=== PATIENT | male | born 1955 | race Asian ===

== ENCOUNTER 2016-12-28 05:33 | Inpatient (IN) | payer MEDICAID ==
[~2016-12-28] VITALS: Ht 165.1 cm; Wt 56.7 kg
[~2016-12-28 05:33] MED LIST: GABAPENTIN100 MG ORAL; GLUCOPHAGE500 MG ORAL; LIPITOR10 MG ORAL; PLAVIX75 MG ORAL
--- NOTE | 2016-12-28 05:55 | Emergency Room Report ---
History of Present Illness General Chief Complaint: Pain Source: Patient, Family Member (ROBERTO BARRY M.D.) Present Illness HPI Is a 61-year-old French male with history of [place] status post CABG in the past. 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 Patient presents with multiple pain complaints. His main complaint is right-sided headache and pain to right side and arms. Also with chest pain. No numbness in his fingers. No fever or chills. Is an ongoing problem for over a year. Has not seen anybody for it. Pain is worse tonight and is why he is here. Woke up with pain about an hour ago. No nausea no vomiting. No fever or chills. No radiation the pain in the chest. No diaphoresis (ROBERTO BARRY M.D.) Allergies: Coded Allergies: No Known Allergies (Unverified , 10/07/14) Patient History Past Medical History: see triage record, old chart reviewed, HTN, [place] Past Surgical History: CABG Pertinent Family History: none Social History: Denies: smoking Immunizations: other Reviewed Nursing Documentation: PMH: Agreed, PSxH: Agreed (ROBERTO BARRY M.D.) Nursing Documentation-PMH Hx Cardiac Problems: Yes - [place],STENT Hx Diabetes: Yes Hx Cancer: No Hx Numbness: Yes - Right side of body (ROBERTO BARRY M.D.) Review of Systems Eye: Denies: blurred vision, eye pain ENT: Denies: ear pain, nose congestion, throat swelling Respiratory: Denies: cough, shortness of breath Cardiovascular: Reports: chest pain, Denies: palpitations Gastrointestinal: Denies: abdominal pain, diarrhea, nausea, vomiting Musculoskeletal: Denies: back pain, joint pain Skin: Denies: rash Neurological: Reports: headache, numbness Endocrine: Denies: increased thirst, increased urine Hematologic/Lymphatic: Denies: easy bruising All Other Systems: negative except mentioned in HPI (ROBERTO BARRY M.D.) Physical Exam Vital Signs Date Time Temp Pulse Resp B/P Pulse Ox O2 Delivery O2 Flow Rate FiO2 12/28/16 05:39 97.7 70 16 176/106 100 Room Air vitals with hypertension Sp02 EP Interpretation: reviewed, normal General Appearance: well appearing, no apparent distress, alert Head: normocephalic, atraumatic Eyes: bilateral eye EOMI, bilateral eye PERRL ENT: hearing grossly normal, normal pharynx Neck: full range of motion, supple, no meningismus Respiratory: chest non-tender, lungs clear, normal breath sounds Cardiovascular #1: regular rate, rhythm, no murmur Gastrointestinal: normal bowel sounds, non tender, no mass, no organomegaly, no bruit, non-distended Musculoskeletal: back normal, gait/station normal, normal range of motion Neurologic: alert, oriented x3 Psychiatric: anxious Skin: warm/dry (ROBERTO BARRY M.D.) Medical Decision Making Diagnostic Impression: Primary Impression: Headache Qualified Codes: R51 - Headache Additional Impressions: Hypertensive urgency, malignant Chest pain Qualified Codes: R07.9 - Chest pain, unspecified ER Course Patient presents with headache. This has been ongoing for over a year. This may be tension-like versus migraine versus anxiety-induced. His chest pain is atypical. Labs pending. CT head pending. I will sign this patient out to Dr. Sue for final disposition. Lab Results Impression labs unremarkable (ROBERTO BARRY M.D.) ER Course Patient is a fairly complex patient with multiple differential to consideration including but not limited to cardiac cardiopulmonary and vascular emergencies Patient's CT head was negative Baseline blood work is at appropriate levels given the patient's hypertensive presentation including headache Neck pain and also shoulder pain ACS is considered on the differential and patient admitted for further care Labs Test 12/28/16 05:55 White Blood Count 4.1 K/UL (4.8-10.8) Red Blood Count 5.39 M/UL (4.70-6.10) Hemoglobin 16.4 G/DL (14.2-18.0) Hematocrit 47.4 % (42.0-52.0) Mean Corpuscular Volume 88 FL (80-99) Mean Corpuscular Hemoglobin 30.5 PG (27.0-31.0) Mean Corpuscular Hemoglobin Concent 34.7 G/DL (32.0-36.0) Red Cell Distribution Width 11.4 % (11.6-14.8) Platelet Count 209 K/UL (150-450) Mean Platelet Volume 7.3 FL (6.5-10.1) Neutrophils (%) (Auto) 55.9 % (45.0-75.0) Lymphocytes (%) (Auto) 30.5 % (20.0-45.0) Monocytes (%) (Auto) 9.4 % (1.0-10.0) Eosinophils (%) (Auto) 3.0 % (0.0-3.0) Basophils (%) (Auto) 1.2 % (0.0-2.0) Sodium Level 134 mEQ/L (135-145) Potassium Level 3.6 mEQ/L (3.4-4.9) Chloride Level 97 mEQ/L (98-107) Carbon Dioxide Level 23 mEQ/L (20-30) Anion Gap 14 (5-15) Blood Urea Nitrogen 16 mg/dL (7-23) Creatinine 0.7 mg/dL (0.7-1.2) Estimat Glomerular Filtration Rate > 60 mL/min (>60) Glucose Level 178 mg/dL (74-106) Calcium Level 8.8 mg/dL (8.6-10.2) Total Bilirubin 0.5 mg/dL (0.0-1.2) Aspartate Amino Transf (AST/SGOT) 13 U/L (5-40) Alanine Aminotransferase (ALT/SGPT) 23 U/L (3-41) Alkaline Phosphatase 98 U/L (40-129) Total Creatine Kinase 94 U/L (38-174) Creatine Kinase MB 2.9 ng/mL (< 6.7) Creatine Kinase MB Relative Index 3.0 Troponin I < 0.30 ng/mL (<=0.30) Total Protein 6.7 g/dL (6.6-8.7) Albumin 3.9 g/dL (3.5-5.2) Globulin 2.8 g/dL Albumin/Globulin Ratio 1.3 (1.0-2.7) (LILLIE SUE D.Fabian) EKG Diagnostic Results Rate: normal Rhythm: NSR ST Segments: other - Nonspecific ST changes. Incomplete left bundle branch block. (ROBERTO BARRY M.D.) Rhythm Strip Diag. Results EP Interpretation: yes Rate: 65 Rhythm: NSR, no PVC's, no ectopy (ROBERTO BARRY M.D.) EP Interpretation: yes Rate: 66 Rhythm: NSR, no PVC's, no ectopy (LILLIE SUE D.O.) Chest X-Ray Diagnostic Results EP Interpretation: Yes Findings: no consolidation, no effusion, no pneumothorax, no acute cardiopulmonary disease Number of Views: 1 (ROBERTO BARRY M.D.) EP Interpretation: Yes Findings: no consolidation, no effusion, no pneumothorax Number of Views: 1 (LILLIE SUE D.O.) CT/MRI/US Diagnostic Results CT/MRI/US Diagnostic Results : Imaging Test Ordered: CT head Impression read by radiologist. neg (ROBERTO BARRY M.D.) CT/MRI/US Diagnostic Results : Impression CT head no acute disease (LILLIE SUE D.O.) Last Vital Signs Date Time Temp Pulse Resp B/P Pulse Ox O2 Delivery O2 Flow Rate FiO2 12/28/16 05:39 97.7 70 16 176/106 100 Room Air Status: improved (ROBERTO BARRY M.D.) Status: improved (LILLIE SUE D.O.) Disposition: ADMITTED INPATIENT Condition: Serious ROBERTO BARRY M.D. December 28, 2016 05:55 LILLIE SUE D.O. December 28, 2016 10:58
[2016-12-28] MEDS ORDERED: Ketorolac 30mg Inj IV ONE (06:00)
[2016-12-28] MEDS ORDERED: LORazepam Inj 2mg/ml 1ml IV ONE (06:00)
[2016-12-28 06:13] VITALS: BP 189/115
[2016-12-28 06:26] LABS: BASOPHILS % (AUTO) 1.2 % (0.0-2.0); LYMPHOCYTES % (AUTO) 30.5 % (20.0-45.0); MEAN CORPUSCULAR HEMOGLOBIN 30.5 PG (27.0-31.0); MEAN CORPUSCULAR HGB CONC 34.7 G/DL (32.0-36.0); MEAN CORPUSCULAR VOLUME 88 FL (80-99); MEAN PLATELET VOLUME 7.3 FL (6.5-10.1); MONOCYTES % (AUTO) 9.4 % (1.0-10.0); NEUTROPHILS % (AUTO) 55.9 % (45.0-75.0); PLATELET COUNT 209 K/UL (150-450); RED BLOOD COUNT 5.39 M/UL (4.70-6.10); RED CELL DISTRIBUTION WIDTH 11.4 % (11.6-14.8); WHITE BLOOD COUNT 4.1 K/UL (4.8-10.8)
[2016-12-28 06:49] LABS: ALANINE AMINOTRANSFERASE 23 U/L (3-41); ALBUMIN/GLOBULIN RATIO 1.3 (1.0-2.7); ANION GAP 14 (5-15); ASPARTATE AMINO TRANSFERASE 13 U/L (5-40); CALCIUM 8.8 mg/dL (8.6-10.2); CARBON DIOXIDE 23 mEQ/L (20-30); CHLORIDE 97 mEQ/L (98-107); CREATININE 0.7 mg/dL (0.7-1.2); GLOMERULAR FILTRATION RATE > 60 mL/min (>60); HEMOLYSIS 15; POTASSIUM 3.6 mEQ/L (3.4-4.9); SODIUM 134 mEQ/L (135-145); TOTAL PROTEIN 6.7 g/dL (6.6-8.7)
[2016-12-28 06:51] LABS: TROPONIN I < 0.30 ng/mL (<=0.30)
[2016-12-28 07:00] LABS: CKMB 2.9 ng/mL (< 6.7)
[2016-12-28] MEDS ORDERED: NKM (07:06)
[2016-12-28 08:37] VITALS: BP 144/79
[2016-12-28 09:40] VITALS: BP 135/84
--- NOTE | 2016-12-28 10:08 | Diagnostic Imaging Report ---
Indication: Headache Technique: Contiguous 5 mm thick transaxial imaging of the head obtained in a Siemens Sensation [address] scanner. Soft tissue and bone windows generated. Total Dose length Product (DLP): [address] Dose Index Volume (CTDIvol): 70.38 mGy Comparison: 10/07/14 Findings: The size and configuration of the cortical sulci, basal cisterns, and ventricles are within normal limits for age. There is no mass effect, midline shift, or edema identified. There is no evidence of acute hemorrhage or abnormal intra-axial or extra-axial fluid collections. The bones and soft tissues are unremarkable. Impression: No mass effect, edema or acute bleed. The CT scanner at [facility] is accredited by the [employer] and the scans are performed using dose optimization techniques as appropriate to a performed exam including Automatic Exposure control.
[2016-12-28] MEDS ORDERED: HYDROmorphone 1mg/ml Carpuject IVP PRN ×2 (11:15→17:30)
[2016-12-28 12:00] VITALS: BP 139/88
--- NOTE | 2016-12-28 15:52 | History and Physical ---
History of Present Illness General Reason for Hospitalization: Pain Present Illness HPI This is a 61-year-old Serbian male with PMHx of [place] status post CABG, HTN and DM who presented to the ED with complaint of right-sided headache and pain to right side and arms and chest pain. No numbness or tingling in his fingers. No fever or chills. This has been an ongoing problem for over a year, he has not sort medical evaluation for this. Pain has gotten increasingly worse which prompted his visit to the ED. No nausea no vomiting. No fever or chills. No radiation the pain in the chest. No diaphoresis, no LOC. Allergies: Coded Allergies: No Known Allergies (Unverified , 10/07/14) Medication History Scheduled Atorvastatin Calcium* (Lipitor*), 10 MG ORAL DAILY, (Reported) Clopidogrel Bisulfate* (Plavix*), 75 MG ORAL DAILY, (Reported) Gabapentin* (Gabapentin*), 100 MG ORAL THREE TIMES A DAY, (Reported) Metformin Hcl* (Glucophage*), 500 MG ORAL BIDAC, (Reported) No Known Medications* (NKM - No Known Medications*), 0 ., (Reported) Patient History History Provided By: Patient Healthcare decision maker Resuscitation status Advanced Directive on File Past Medical/Surgical History Past Medical/Surgical History: (1) Diabetes (2) HTN (hypertension) (3) Myocardial infarction (4) S/P CABG (coronary artery bypass graft) Social History Social History: (1) Non-smoker (2) No history of alcohol use (3) No illicit drug use Review of Systems All Other Systems: negative except mentioned in HPI Physical Exam General Appearance: no apparent distress, alert Lines, tubes and drains: peripheral HEENT: normocephalic, atraumatic Neck: non-tender, normal alignment Respiratory/Chest: lungs clear, normal breath sounds, no respiratory distress Cardiovascular/Chest: normal peripheral pulses, normal rate, regular rhythm Abdomen: soft, no organomegaly, no mass Extremities: non-tender, normal inspection, no calf tenderness Skin Exam: warm/dry Neurologic: alert, oriented x 3, responsive, normal mood/affect Last 24 Hour Vital Signs Date Time Temp Pulse Resp B/P Pulse Ox O2 Delivery O2 Flow Rate FiO2 12/28/16 12:00 97.0 60 18 139/88 98 Room Air 12/28/16 12:00 64 12/28/16 09:40 97.9 95 18 135/84 95 Room Air 12/28/16 09:23 97.7 78 18 144/79 100 Room Air 12/28/16 08:37 97.7 78 18 144/79 100 Room Air 12/28/16 08:31 97.7 12/28/16 06:13 97.7 71 18 189/115 99 Room Air 12/28/16 05:39 97.7 70 16 176/106 100 Room Air Intake and Output 12/27/16 12/28/16 19:00 07:00 Intake Total 0 ml Balance 0 ml Intake Oral 0 ml Laboratory Tests Test 12/28/16 05:55 White Blood Count 4.1 K/UL (4.8-10.8) L Red Blood Count 5.39 M/UL (4.70-6.10) Hemoglobin 16.4 G/DL (14.2-18.0) Hematocrit 47.4 % (42.0-52.0) Mean Corpuscular Volume 88 FL (80-99) Mean Corpuscular Hemoglobin 30.5 PG (27.0-31.0) Mean Corpuscular Hemoglobin Concent 34.7 G/DL (32.0-36.0) Red Cell Distribution Width 11.4 % (11.6-14.8) L Platelet Count 209 K/UL (150-450) Mean Platelet Volume 7.3 FL (6.5-10.1) Neutrophils (%) (Auto) 55.9 % (45.0-75.0) Lymphocytes (%) (Auto) 30.5 % (20.0-45.0) Monocytes (%) (Auto) 9.4 % (1.0-10.0) Eosinophils (%) (Auto) 3.0 % (0.0-3.0) Basophils (%) (Auto) 1.2 % (0.0-2.0) Sodium Level 134 mEQ/L (135-145) L Potassium Level 3.6 mEQ/L (3.4-4.9) Chloride Level 97 mEQ/L (98-107) L Carbon Dioxide Level 23 mEQ/L (20-30) Anion Gap 14 (5-15) Blood Urea Nitrogen 16 mg/dL (7-23) Creatinine 0.7 mg/dL (0.7-1.2) Estimat Glomerular Filtration Rate > 60 mL/min (>60) Glucose Level 178 mg/dL (74-106) H Calcium Level 8.8 mg/dL (8.6-10.2) Total Bilirubin 0.5 mg/dL (0.0-1.2) Aspartate Amino Transf (AST/SGOT) 13 U/L (5-40) Alanine Aminotransferase (ALT/SGPT) 23 U/L (3-41) Alkaline Phosphatase 98 U/L (40-129) Total Creatine Kinase 94 U/L (38-174) Creatine Kinase MB 2.9 ng/mL (< 6.7) Creatine Kinase MB Relative Index 3.0 Troponin I < 0.30 ng/mL (<=0.30) Total Protein 6.7 g/dL (6.6-8.7) Albumin 3.9 g/dL (3.5-5.2) Globulin 2.8 g/dL Albumin/Globulin Ratio 1.3 (1.0-2.7) Height (Feet): 5 Height (Inches): 5.00 Weight (Pounds): 125 Medications Current Medications Medications (Trade) Dose Ordered Sig/Nelson Route PRN Reason Start Time Stop Time Status Last Admin Dose Admin Atorvastatin Calcium (Lipitor) 10 mg BEDTIME ORAL 12/28/16 21:00 01/27/17 20:59 Clopidogrel Bisulfate (Plavix) 75 mg DAILY ORAL 12/29/16 09:00 01/28/17 08:59 Dextrose (Dextrose 50%) STAT PRN IV Hypoglycemia 12/28/16 11:15 01/27/17 11:14 Gabapentin (Neurontin) 100 mg THREE TIMES A DAY ORAL 12/28/16 13:00 01/27/17 12:59 12/28/16 12:30 Hydromorphone HCl (Dilaudid) 1 mg Q4HR PRN IVP For Pain 12/28/16 11:15 01/04/17 11:14 Metformin HCl (Glucophage) 500 mg BID ORAL 12/28/16 18:00 01/27/17 17:59 Assessment/Plan Problem List: (1) Episode of generalized weakness ICD Codes: R53.1 - Weakness SNOMED: 67794521 (2) Diabetes mellitus, new onset ICD Codes: E11.9 - Diabetes mellitus, new onset SNOMED: 114344648 (3) Paresthesia and pain of right extremity ICD Codes: M79.609 - Paresthesia and pain of right extremity; R20.2 - Paresthesia of skin SNOMED: 44331384 (4) Chest pain ICD Codes: R07.9 - Chest pain, unspecified SNOMED: 97250211 Qualifiers: Qualified Codes: R07.9 - Chest pain, unspecified (5) Headache ICD Codes: R51 - Headache SNOMED: 67341654 Qualifiers: Qualified Codes: R51 - Headache (6) Shoulder pain ICD Codes: M25.519 - Pain in unspecified shoulder SNOMED: 04948608 (7) HTN (hypertension) ICD Codes: I10 - Essential (primary) hypertension SNOMED: 26336757 Assessment/Plan Admit to tele Cardio consult Neuro consult Pulmo consult Pain management Monitor lytes, correct as needed Monitor Vitals BP & BS control O2 prn AM labs BO FOSTER December 28, 2016 15:52
[2016-12-28 16:00] VITALS: BP 145/84
[2016-12-28] MEDS ORDERED: traMADol 50mg tab ORAL PRN (17:15)
--- NOTE | 2016-12-28 17:15 | Neurology Progress Note ---
Objective Physical Exam Last Vital Signs Date Time Temp Pulse Resp B/P Pulse Ox O2 Delivery O2 Flow Rate FiO2 12/28/16 16:00 96.0 71 18 145/84 98 Room Air Laboratory Tests Test 12/28/16 05:55 White Blood Count 4.1 K/UL (4.8-10.8) L Red Blood Count 5.39 M/UL (4.70-6.10) Hemoglobin 16.4 G/DL (14.2-18.0) Hematocrit 47.4 % (42.0-52.0) Mean Corpuscular Volume 88 FL (80-99) Mean Corpuscular Hemoglobin 30.5 PG (27.0-31.0) Mean Corpuscular Hemoglobin Concent 34.7 G/DL (32.0-36.0) Red Cell Distribution Width 11.4 % (11.6-14.8) L Platelet Count 209 K/UL (150-450) Mean Platelet Volume 7.3 FL (6.5-10.1) Neutrophils (%) (Auto) 55.9 % (45.0-75.0) Lymphocytes (%) (Auto) 30.5 % (20.0-45.0) Monocytes (%) (Auto) 9.4 % (1.0-10.0) Eosinophils (%) (Auto) 3.0 % (0.0-3.0) Basophils (%) (Auto) 1.2 % (0.0-2.0) Sodium Level 134 mEQ/L (135-145) L Potassium Level 3.6 mEQ/L (3.4-4.9) Chloride Level 97 mEQ/L (98-107) L Carbon Dioxide Level 23 mEQ/L (20-30) Anion Gap 14 (5-15) Blood Urea Nitrogen 16 mg/dL (7-23) Creatinine 0.7 mg/dL (0.7-1.2) Estimat Glomerular Filtration Rate > 60 mL/min (>60) Glucose Level 178 mg/dL (74-106) H Calcium Level 8.8 mg/dL (8.6-10.2) Total Bilirubin 0.5 mg/dL (0.0-1.2) Aspartate Amino Transf (AST/SGOT) 13 U/L (5-40) Alanine Aminotransferase (ALT/SGPT) 23 U/L (3-41) Alkaline Phosphatase 98 U/L (40-129) Total Creatine Kinase 94 U/L (38-174) Creatine Kinase MB 2.9 ng/mL (< 6.7) Creatine Kinase MB Relative Index 3.0 Troponin I < 0.30 ng/mL (<=0.30) Total Protein 6.7 g/dL (6.6-8.7) Albumin 3.9 g/dL (3.5-5.2) Globulin 2.8 g/dL Albumin/Globulin Ratio 1.3 (1.0-2.7) Impression/Recommendations Status: unchanged Recommendations #[id number] IRIS GAN December 28, 2016 17:15
[2016-12-28] MEDS ORDERED: Haloperidol 1mg tab ORAL PRN (17:30)
[2016-12-28] MEDS: metFORMIN 500mg tab ORAL SCH (17:30)
[2016-12-28 20:00] VITALS: BP 138/82
[2016-12-29 00:28] VITALS: BP 139/83
--- NOTE | 2016-12-29 03:01 | Consultation ---
DATE OF CONSULTATION: 12/28/2016 NEUROLOGICAL CONSULTATION REQUESTING PHYSICIAN: Christian Nick M.D. HISTORY OF PRESENT ILLNESS: This is a 61 years old male seen in neurological consultation to evaluate exacerbation of upper back neck pain radiating to right upper extremity with numbness and tingling in his right upper extremity. The patient indicated that symptoms started at least three years ago, he has been treated with some "[place]" medications, but felt no improvement and was admitted after having exacerbation of pain. The patient's vital signs on admission included blood pressure 176/106, and heart rate 70. His examination is described as normal. His imaging studies included CAT scan of the brain, which was normal with no acute intracranial abnormalities. Laboratory work was obtained revealing a normal CBC study. Chemistry panel was unremarkable except sodium 134 and blood sugar 178. Normal troponin. Vital signs remained stable since admission. The patient was seen at this facility in 12/2014. He had an MRI of the brain, this was negative. He had a right shoulder CT scan, which showed paresthesia in the upper extremity, study was negative. Chest x-ray revealed no acute disease. The patient was described as having chronic right shoulder and right upper back pain worse with the movement. He had a new onset of diabetes, status post coronary artery disease, status post a stent placement, and CABG. CURRENT MEDICATIONS: His treatment prior to admission included gabapentin 100 mg t.i.d., Plavix, and Lipitor. ALLERGIES: None reported. SOCIAL HISTORY: He lives with his . 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 He is driving the car. Denies alcohol or drug abuse. FAMILY HISTORY: Noncontributory. REVIEW OF SYSTEMS: This was limited to upper back neck pain and right upper extremity pain, numbness and tingling. Denies chest pain or palpitations. No respiratory problems. Denies abdominal pain or discomfort. No urine or bowel incontinence. PHYSICAL EXAMINATION: GENERAL: Short-statured, well-developed, well-nourished man, not in acute distress. VITAL SIGNS: Now stable. Blood pressure was 145/84. HEENT: Head, normocephalic. No evidence of trauma. Eyes, ears, and throat are clear. NECK: Supple. MUSCULOSKELETAL: There is a palpable tenderness at the base of skull and cervical paraspinal region. No deformity. Slight tenderness on palpation right forearm, but no deformities. Peripheral pulses 1+ symmetric. Negative Tinel sign. MENTAL STATUS: He is alert and oriented x3 with no evidence of aphasia or apraxia. He is somewhat incoherent probably due to poor translation. CRANIAL NERVE II: Pupils both responding to light and accommodation. Extraocular movement intact. No nystagmus. CRANIAL NERVE V: Normal corneal responses. CRANIAL NERVE VII: No facial asymmetry. CRANIAL NERVE VIII: Normal hearing. CRANIAL NERVE IX THROUGH XII: Within normal limits. MOTOR EXAMINATION: Normal muscle tone. Strength is 5/5 in all extremities. No involuntary movement. Deep reflexes 1+ symmetric with downgoing toes on both sides. SENSORY EXAMINATION: Normal to pinprick and light touch. Gait is stable. IMPRESSION: 1. Persistent neck pain with signs suggestive of right upper extremity radiculopathy. Rule out cervical spondylosis with discogenic disease. 2. Hypertension, poor control. 3. History of diabetes type 2. 4. Hyperlipidemia. 5. Coronary artery disease, status post coronary artery bypass graft, and stent placement. RECOMMENDATION: 1. An MRI of the cervical spine. 2. Glycated hemoglobin, JAIRO, sedimentation rate, B12, folate, and thyroid function. 3. Start on Motrin 800 mg b.i.d., tramadol 50 mg t.i.d. p.r.n. for breakthrough pain and Neurontin 300 mg daily. Thank you for allowing me to see this interesting patient in neurological consultation. Sarath Marvin M.D. DR: CANDICE JOB#: [id number] CC:
[2016-12-29 04:12] VITALS: BP 140/90
[2016-12-29 08:00] VITALS: BP 144/87
[2016-12-29 08:34] LABS: BASOPHILS % (AUTO) 1.1 % (0.0-2.0); EOSINOPHILS % (AUTO) 3.4 % (0.0-3.0); LYMPHOCYTES % (AUTO) 33.6 % (20.0-45.0); MEAN CORPUSCULAR HEMOGLOBIN 31.3 PG (27.0-31.0); MEAN CORPUSCULAR HGB CONC 35.5 G/DL (32.0-36.0); MEAN CORPUSCULAR VOLUME 88 FL (80-99); MEAN PLATELET VOLUME 6.9 FL (6.5-10.1); NEUTROPHILS % (AUTO) 52.8 % (45.0-75.0); PLATELET COUNT 193 K/UL (150-450); RED BLOOD COUNT 5.48 M/UL (4.70-6.10); RED CELL DISTRIBUTION WIDTH 11.2 % (11.6-14.8); WHITE BLOOD COUNT 3.9 K/UL (4.8-10.8)
[2016-12-29] MEDS: metFORMIN 500mg tab ORAL SCH ×2 (09:02→17:16)
[2016-12-29 09:09] LABS: ANION GAP 13 (5-15); CALCIUM 8.8 mg/dL (8.6-10.2); CARBON DIOXIDE 24 mEQ/L (20-30); CHLORIDE 102 mEQ/L (98-107); CREATININE 0.7 mg/dL (0.7-1.2); GLOMERULAR FILTRATION RATE > 60 mL/min (>60); HEMOLYSIS 7; POTASSIUM 3.9 mEQ/L (3.4-4.9); SODIUM 139 mEQ/L (135-145)
[2016-12-29 12:00] VITALS: BP 141/92
--- NOTE | 2016-12-29 12:47 | Cardiac Electrophysiology PN ---
Subjective Subjective [id number] Objective Last 24 Hour Vital Signs Date Time Temp Pulse Resp B/P Pulse Ox O2 Delivery O2 Flow Rate FiO2 12/29/16 12:00 98.0 61 18 141/92 99 Room Air 12/29/16 08:00 60 12/29/16 08:00 97.0 58 18 144/87 98 Room Air 12/29/16 04:12 97.0 65 20 140/90 95 Room Air 12/29/16 04:00 60 12/29/16 00:28 98.4 70 20 139/83 99 Room Air 12/29/16 00:00 74 12/28/16 20:00 66 12/28/16 20:00 97.5 65 20 138/82 96 Room Air 12/28/16 16:00 66 12/28/16 16:00 96.0 71 18 145/84 98 Room Air Intake and Output 12/28/16 12/29/16 19:00 07:00 Intake Total 120 ml Balance 120 ml Intake Oral 120 ml # Voids 3 # Bowel Movements 1 Laboratory Tests Test 12/29/16 07:30 White Blood Count 3.9 K/UL (4.8-10.8) L Red Blood Count 5.48 M/UL (4.70-6.10) Hemoglobin 17.1 G/DL (14.2-18.0) Hematocrit 48.3 % (42.0-52.0) Mean Corpuscular Volume 88 FL (80-99) Mean Corpuscular Hemoglobin 31.3 PG (27.0-31.0) H Mean Corpuscular Hemoglobin Concent 35.5 G/DL (32.0-36.0) Red Cell Distribution Width 11.2 % (11.6-14.8) L Platelet Count 193 K/UL (150-450) Mean Platelet Volume 6.9 FL (6.5-10.1) Neutrophils (%) (Auto) 52.8 % (45.0-75.0) Lymphocytes (%) (Auto) 33.6 % (20.0-45.0) Monocytes (%) (Auto) 9.0 % (1.0-10.0) Eosinophils (%) (Auto) 3.4 % (0.0-3.0) H Basophils (%) (Auto) 1.1 % (0.0-2.0) Sodium Level 139 mEQ/L (135-145) Potassium Level 3.9 mEQ/L (3.4-4.9) Chloride Level 102 mEQ/L (98-107) Carbon Dioxide Level 24 mEQ/L (20-30) Anion Gap 13 (5-15) Blood Urea Nitrogen 16 mg/dL (7-23) Creatinine 0.7 mg/dL (0.7-1.2) Estimat Glomerular Filtration Rate > 60 mL/min (>60) Glucose Level 160 mg/dL (74-106) H Calcium Level 8.8 mg/dL (8.6-10.2) AKBAR ARGUELLES December 29, 2016 12:47
[2016-12-29 16:00] VITALS: BP 139/58
--- NOTE | 2016-12-29 19:45 | Consultation ---
DATE OF CONSULTATION: TIME SEEN: At 8 a.m. CHIEF COMPLAINT: Increased headache, hypertensive urgency. BRIEF HISTORY: The patient is a 61-year-old male who lives at home presents with intermittent headache, throbbing, hypertensive urgency admitted to telemetry for further care. Currently clam, slightly confused in bed, not talking much. PAST MEDICAL HISTORY: Includes hypertension, diabetes, history of [place], and generalized weakness. PAST SURGICAL HISTORY: The patient denies surgery. ALLERGIES: Denies. MEDICATIONS: Plavix, Lipitor, Glucophage, Motrin, Haldol, Dilaudid, , Neurontin, hydromorphone. SOCIAL HISTORY: No smoking. No alcohol. No intravenous drug abuse. FAMILY HISTORY: Noncontributory. REVIEW OF SYSTEMS: No chest pain. No shortness of breath. No nausea, vomiting, or diarrhea. PHYSICAL EXAMINATION: GENERAL: Calm in bed, oriented x2, in no acute distress. VITAL SIGNS: Temperature 97 degrees, pulse 65, respirations 20, blood pressure 140/90 initially was 145/84. CARDIOVASCULAR: No murmur. LUNGS: Poor exchange. ABDOMEN: Bowel sounds positive. Nontender. Nondistended. EXTREMITIES: No cyanosis, clubbing, or edema. NEUROLOGIC: The patient moves all extremities, but slightly weak. LABORATORY DATA: White count 4.1, otherwise CBC is normal. BMP shows sodium 134, chloride 97, glucose 178. ASSESSMENT: 1. Hypertensive urgency. 2. Headache. 3. Diabetes. 4. History of myocardial infarction. 5. Generalized weakness. PLAN: 1. OT/PT. 2. Dieatry evaluation. 3. CBC and BMP in the morning. 4. Blood pressure control. 5. Pain control. 6. Blood sugar control. 7. Dietary followup. 8. Resume home mediations. 9. We will continue to follow the patient. Jose Mina D.O. DR: Adry JOB#: [id number] CC:
[2016-12-29 20:09] VITALS: BP 148/88
[2016-12-29] MEDS: Metoprolol 25mg tab ORAL SCH (21:02)
--- NOTE | 2016-12-29 21:31 | Consultation ---
DATE OF CONSULTATION: 12/29/2016 HISTORY OF PRESENT ILLNESS: The patient is a 61-year-old [place] male with previous history of CABG, CAD, hypertension, diabetes came into the hospital with right-sided headache and pain. He also complained of right side pain as well as arm and right chest pain. He denies any fever or chills. He states that he has been getting worse so he came into the hospital for further workup. He was seen by Neurology. PAST MEDICAL HISTORY: Notable for hyperlipidemia, coronary artery disease, diabetes mellitus. PAST SURGICAL HISTORY: Include CABG. REVIEW OF SYSTEMS: Denies any headaches, hematemesis, melena, or hematochezia except those mentioned in the history of present illness. PHYSICAL EXAMINATION: GENERAL: Reveals a 61-year-old male. VITAL SIGNS: Blood pressure 130/70, heart rate 74, respiratory rate 18, afebrile. HEENT: Unremarkable. CHEST: Clear breath sounds bilaterally. ABDOMEN: Soft. EXTREMITIES: No cyanosis. NEUROLOGIC: Nonfocal. LABORATORY AND DIAGNOSTIC DATA: Head CT is negative. Lab testing is otherwise unremarkable except for normal CBC and BMP. Glucose 160. Troponin is negative. IMPRESSION: 1. Atypical right-sided chest pain, we suspect pulmonary embolus or cardiac pain. 2. Headache. 3. Hypertension. 4. Diabetes. DISCUSSION: Plan and care per primary physician and Cardiology. We will follow as beam warper. At this point, there are no active suggestions. Uche Liz M.D. DR: Alejo JOB#: [id number] CC:
--- NOTE | 2016-12-29 22:15 | Consultation ---
DATE OF CONSULTATION: 12/29/2016 CARDIOLOGY CONSULTATION CONSULTING PHYSICIAN: Duglas Galindo M.D. REFERRING PHYSICIAN: Christian Nick M.D. REASON FOR CONSULTATION: Management of coronary artery disease and history of bypass. HISTORY OF PRESENT ILLNESS: The patient is a 61-year-old [place] gentleman with history of hypertension, hyperlipidemia, and history of coronary artery bypass graft in year 2002 in [place], whom I saw before in 2012. The patient also had diabetes and history of right upper extremity paraesthesia at that time. The patient was admitted for upper back pain and neck pain with radiation to the right upper extremity and numbness and tingling to the right upper extremity. The patient has been having these episodes for the last three years and had been taking some georgian medication, but with no improvement. In the emergency room, the patient's blood pressure was 176/106 and the patient was admitted for history of hypertension and further neurologic evaluation. PAST MEDICAL HISTORY: Includes, 1. Hypertension. 2. Hyperlipidemia. 3. History of coronary artery bypass graft. ALLERGIES: No known drug allergies. FAMILY HISTORY: Noncontributory. SOCIAL HISTORY: He lives with his . 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 He does not smoke or drink alcohol. REVIEW OF SYSTEMS: Review of systems was thoroughly performed and was negative other than what is mentioned in the history of present illness. PHYSICAL EXAMINATION: VITAL SIGNS: Blood pressure is 141/92, pulse 64, respirations 18, and temperature 98 degrees. HEAD AND NECK: Shows no JVD. LUNGS: Clear. CARDIOVASCULAR: Shows regular S1 and S2 with no gallop or murmur. His sternotomy is intact. ABDOMEN: Soft and nontender. EXTREMITIES: No pitting edema. LABORATORY DATA: Labs show white count 3.9, hemoglobin 17, hematocrit 48.3, and platelet count of 193,000. Sodium 139, potassium 3.9, BUN of 16, creatinine 0.7, and glucose of 160. INR is 1. ASSESSMENT AND PLAN: 1. Coronary artery disease with history of coronary artery bypass graft and prior myocardial infarction. The patient any chest pain. Continue Plavix 75 mg daily and Lipitor 10 mg daily. 2. History of hypertension. I will add Lopressor 25 mg b.i.d., which is good for his post myocardial infarction status as well. 3. Right upper extremity weakness and neck pain, possible radiculopathy, rule out cervical spondylosis. Further evaluation by Dr. Marvin. MRI of the cervical spine is pending. 4. Type 2 diabetes. 5. Hyperlipidemia. Thank you very much, Dr. Nick, for allowing me to participate in the care of this patient. Please do not hesitate to contact me for any questions regarding my evaluation. Duglas Galindo M.D. DR: JAVIER JOB#: [id number] CC:
--- NOTE | 2016-12-29 22:37 | Nephrology Progress Note ---
Assessment/Plan Problem List: (1) Episode of generalized weakness (2) Diabetes mellitus, new onset (3) Paresthesia and pain of right extremity (4) Chest pain (5) Headache (6) Shoulder pain (7) HTN (hypertension) Plan Pain management Monitor lytes, correct as needed Monitor Vitals BP & BS control O2 prn f/u with cardio and neuro rec AM labs Subjective Constitutional: Denies: chills, diaphoresis, fever, malaise, no symptoms, other , weakness HEENT: Denies: blurred vision, double vision, ear discharge, ear pain, eye pain , mouth pain, mouth swelling, no symptoms, nose congestion, nose pain, other, tearing, throat pain, throat swelling Genitourinary: Denies: burning, discharge, flank pain, frequency, hematuria, incontinence, no symptoms, other, pain, urgency Neurologic/Psychiatric: Denies: anxiety, depressed, emotional problems, headache, no symptoms, numbness, other, paresthesia, pre-existing deficit, seizure, tingling, tremors, weakness Subjective In bed, in no distress, denies discomfort Objective Objective Last 24 Hour Vital Signs Date Time Temp Pulse Resp B/P Pulse Ox O2 Delivery O2 Flow Rate FiO2 12/29/16 21:02 80 148/88 12/29/16 20:09 97.7 82 20 148/88 97 Room Air 12/29/16 16:00 65 12/29/16 16:00 97.0 61 18 139/58 95 Room Air 12/29/16 12:00 63 12/29/16 12:00 98.0 61 18 141/92 99 Room Air 12/29/16 08:00 60 12/29/16 08:00 97.0 58 18 144/87 98 Room Air 12/29/16 04:12 97.0 65 20 140/90 95 Room Air 12/29/16 04:00 60 12/29/16 00:28 98.4 70 20 139/83 99 Room Air 12/29/16 00:00 74 Intake and Output 12/28/16 12/29/16 19:00 07:00 Intake Total 120 ml Balance 120 ml Intake Oral 120 ml # Voids 3 # Bowel Movements 1 Laboratory Tests 12/29/16 07:30: White Blood Count 3.9L, Red Blood Count 5.48, Hemoglobin 17.1, Hematocrit 48.3, Mean Corpuscular Volume 88, Mean Corpuscular Hemoglobin 31.3H, Mean Corpuscular Hemoglobin Concent 35.5, Red Cell Distribution Width 11.2L, Platelet Count 193, Mean Platelet Volume 6.9, Neutrophils (%) (Auto) 52.8, Lymphocytes (%) (Auto) 33.6, Monocytes (%) (Auto) 9.0, Eosinophils (%) (Auto) 3.4H, Basophils (%) (Auto ) 1.1, Sodium Level 139, Potassium Level 3.9, Chloride Level 102, Carbon Dioxide Level 24, Anion Gap 13, Blood Urea Nitrogen 16, Creatinine 0.7, Estimat Glomerular Filtration Rate > 60, Glucose Level 160H, Calcium Level 8.8 Height (Feet): 5 Height (Inches): 5.00 Weight (Pounds): 125 General Appearance: no apparent distress, alert EENT: normal ENT inspection Neck: normal alignment, supple Cardiovascular: normal rate, regular rhythm Respiratory/Chest: normal breath sounds, no respiratory distress Abdomen: soft, no organomegaly Extremities: non-tender, normal inspection Neurologic: alert, oriented x 3, responsive, normal mood/affect - amharic speaking BO FOSTER December 29, 2016 22:37
--- NOTE | 2016-12-29 23:09 | Consultation ---
DATE OF CONSULTATION: TIME SEEN: 8 a.m. CHIEF COMPLAINT: Increased headache, hypertensive urgency. BRIEF HISTORY: The patient is a 61-year-old male who lives at home presents with intermittent headache, throbbing, hypertensive urgency admitted to telemetry for further care. Currently clam, slightly confused in bed, not talking much. REVIEW OF SYSTEMS: No chest pain. No shortness of breath. No nausea, vomiting, or diarrhea. PAST MEDICAL HISTORY: Hypertension, diabetes, history of CO, generalized weakness. PAST SURGICAL HISTORY: The patient denies surgery. MEDICATIONS: Plavix, Lipitor, Glucophage, Motrin, Haldol, Dilaudid, Neurontin, hydromorphone. ALLERGIES: Denies. SOCIAL HISTORY: No smoking, no alcohol, no intravenous drug abuse. FAMILY HISTORY: Noncontributory. PHYSICAL EXAMINATION: GENERAL: Calm in bed, oriented x2, in no acute distress. VITAL SIGNS: Temperature 97, pulse 65, respiratory rate 20, and blood pressure 140/90, initially was 145/84. CARDIOVASCULAR: No murmurs. LUNGS: Poor exchange. ABDOMEN: Positive bowel sounds. Soft, nontender and nondistended. EXTREMITIES: No cyanosis, clubbing, or edema. NEUROLOGIC: The patient moves all extremities but slightly weak. LABORATORY DATA: White count 4.1, otherwise CBC is normal. BMP shows sodium 134, chloride 97, glucose 178. ASSESSMENT: 1. Hypertensive urgency. 2. Headache. 3. Diabetes. 4. History of myocardial infarction. 5. Generalized weakness PLAN: 1. OT/PT. 2. Dietary evaluation. 3. CBC and BMP in the morning. 4. Blood pressure control. 5. Pain control. 6. Blood sugar control. 7. Dietary followup. 8. Resume home medications. 9. We will continue to follow this patient. Jose Mina D.O. DR: Adry JOB#: [id number] CC:
[2016-12-30] VITALS: BP 146/85
[2016-12-30 04:10] VITALS: BP 143/84
[2016-12-30 07:02] LABS: BASOPHILS % (AUTO) 1.2 % (0.0-2.0); EOSINOPHILS % (AUTO) 3.5 % (0.0-3.0); LYMPHOCYTES % (AUTO) 34.4 % (20.0-45.0); MEAN CORPUSCULAR HEMOGLOBIN 30.5 PG (27.0-31.0); MEAN CORPUSCULAR HGB CONC 34.4 G/DL (32.0-36.0); MEAN CORPUSCULAR VOLUME 89 FL (80-99); MEAN PLATELET VOLUME 6.8 FL (6.5-10.1); NEUTROPHILS % (AUTO) 52.9 % (45.0-75.0); PLATELET COUNT 211 K/UL (150-450); RED BLOOD COUNT 5.64 M/UL (4.70-6.10); RED CELL DISTRIBUTION WIDTH 11.5 % (11.6-14.8); WHITE BLOOD COUNT 4.8 K/UL (4.8-10.8)
[2016-12-30 07:18] LABS: TROPONIN I < 0.30 ng/mL (<=0.30)
[2016-12-30 07:26] LABS: ANION GAP 14 (5-15); CALCIUM 9.2 mg/dL (8.6-10.2); CARBON DIOXIDE 26 mEQ/L (20-30); CHLORIDE 101 mEQ/L (98-107); GLOMERULAR FILTRATION RATE > 60 mL/min (>60); HEMOLYSIS 13; POTASSIUM 4.2 mEQ/L (3.4-4.9); SODIUM 141 mEQ/L (135-145)
--- NOTE | 2016-12-30 07:55 | General Progress Note ---
Assessment/Plan Problem List: (1) Chest pain ICD Codes: R07.9 - Chest pain, unspecified SNOMED: 67795748 Qualifiers: Qualified Codes: R07.9 - Chest pain, unspecified (2) Headache ICD Codes: R51 - Headache SNOMED: 15860322 Qualifiers: Qualified Codes: R51 - Headache (3) Hypertensive urgency, malignant ICD Codes: I16.0 - Hypertensive urgency SNOMED: 106019585 (4) Diabetes ICD Codes: E11.9 - Type 2 diabetes mellitus without complications SNOMED: 56918612 (5) HTN (hypertension) ICD Codes: I10 - Essential (primary) hypertension SNOMED: 60215267 (6) Myocardial infarction ICD Codes: I21.3 - ST elevation (STEMI) myocardial infarction of unspecified site SNOMED: 79783515 Status: stable, progressing, tolerating diet Assessment/Plan ot pt diet bs bp control dc plan Subjective Allergies: Coded Allergies: No Known Allergies (Unverified , 10/07/14) All Systems: reviewed and negative except above Subjective calm in bed Objective Last 24 Hour Vital Signs Date Time Temp Pulse Resp B/P Pulse Ox O2 Delivery O2 Flow Rate FiO2 12/30/16 04:10 97.7 58 20 143/84 98 Room Air 12/30/16 04:00 59 12/30/16 00:00 65 12/30/16 00:00 97.0 66 20 146/85 96 Room Air 12/29/16 21:02 80 148/88 12/29/16 20:09 97.7 82 20 148/88 97 Room Air 12/29/16 20:00 83 12/29/16 16:00 65 12/29/16 16:00 97.0 61 18 139/58 95 Room Air 12/29/16 12:00 63 12/29/16 12:00 98.0 61 18 141/92 99 Room Air 12/29/16 08:00 60 12/29/16 08:00 97.0 58 18 144/87 98 Room Air Intake and Output 12/29/16 12/30/16 19:00 07:00 # Voids 3 3 Laboratory Tests 12/30/16 05:55: White Blood Count 4.8, Red Blood Count 5.64, Hemoglobin 17.2, Hematocrit 50.0, Mean Corpuscular Volume 89, Mean Corpuscular Hemoglobin 30.5, Mean Corpuscular Hemoglobin Concent 34.4, Red Cell Distribution Width 11.5L, Platelet Count 211, Mean Platelet Volume 6.8, Neutrophils (%) (Auto) 52.9, Lymphocytes (%) (Auto) 34.4, Monocytes (%) (Auto) 8.0, Eosinophils (%) (Auto) 3.5H, Basophils (%) (Auto ) 1.2, Sodium Level 141, Potassium Level 4.2, Chloride Level 101, Carbon Dioxide Level 26, Anion Gap 14, Blood Urea Nitrogen 19, Creatinine 1.0, Estimat Glomerular Filtration Rate > 60, Glucose Level 158H, Calcium Level 9.2, Troponin I < 0.30, Pro-B-Type Natriuretic Peptide [Pending] Height (Feet): 5 Height (Inches): 5.00 Weight (Pounds): 125 General Appearance: alert EENT: normal ENT inspection Neck: normal alignment Cardiovascular: normal peripheral pulses, normal rate, regular rhythm Respiratory/Chest: chest wall non-tender, lungs clear, normal breath sounds Abdomen: normal bowel sounds, non tender, soft Extremities: normal inspection Edema: no edema noted Arm (L), no edema noted Arm (R), no edema noted Leg (L), no edema noted Leg (R), no edema noted Pedal (L), no edema noted Pedal (R), no edema noted Generalized Neurologic: responsive, motor weakness Skin: normal pigmentation, warm/dry MERRITT RAMOS December 30, 2016 07:55
[2016-12-30 07:56] VITALS: BP 133/79
[2016-12-30] MEDS: Aspirin EC 81mg tab ORAL SCH (08:51)
[2016-12-30] MEDS: metFORMIN 500mg tab ORAL SCH ×2 (08:51→17:02)
[2016-12-30] MEDS: Metoprolol 25mg tab ORAL SCH ×2 (08:51→20:43)
--- NOTE | 2016-12-30 10:16 | Pulmonology Progress Note ---
Assessment/Plan Assessment/Plan IMPRESSION: 1. Atypical right-sided chest pain, do not suspect pulmonary embolus or cardiac pain. 2. Headache. 3. Hypertension. 4. Diabetes. DISCUSSION: Plan and care per primary physician and Cardiology. We will follow as nursing administrator. At this point, there are no active suggestions. Subjective Interval Events: None Constitutional: Reports: no symptoms HEENT: Repors: no symptoms Respiratory: Reports: no symptoms Cardiovascular: Reports: no symptoms Gastrointestinal/Abdominal: Reports: no symptoms Genitourinary: Reports: no symptoms Allergies: Coded Allergies: No Known Allergies (Unverified , 10/07/14) Objective Last 24 Hour Vital Signs Date Time Temp Pulse Resp B/P Pulse Ox O2 Delivery O2 Flow Rate FiO2 12/30/16 09:50 96.4 12/30/16 08:51 58 133/79 12/30/16 07:56 96.4 58 20 133/79 98 Room Air 12/30/16 07:48 55 12/30/16 04:10 97.7 58 20 143/84 98 Room Air 12/30/16 04:00 59 12/30/16 00:00 65 12/30/16 00:00 97.0 66 20 146/85 96 Room Air 12/29/16 21:02 80 148/88 12/29/16 20:09 97.7 82 20 148/88 97 Room Air 12/29/16 20:00 83 12/29/16 16:00 65 12/29/16 16:00 97.0 61 18 139/58 95 Room Air 12/29/16 12:00 63 12/29/16 12:00 98.0 61 18 141/92 99 Room Air Intake and Output 12/29/16 12/30/16 19:00 07:00 # Voids 3 3 General Appearance: no acute distress HEENT: normocephalic Respiratory/Chest: chest wall non-tender, lungs clear Cardiovascular: normal peripheral pulses, normal rate Abdomen: normal bowel sounds Laboratory Tests 12/30/16 05:55: White Blood Count 4.8, Red Blood Count 5.64, Hemoglobin 17.2, Hematocrit 50.0, Mean Corpuscular Volume 89, Mean Corpuscular Hemoglobin 30.5, Mean Corpuscular Hemoglobin Concent 34.4, Red Cell Distribution Width 11.5L, Platelet Count 211, Mean Platelet Volume 6.8, Neutrophils (%) (Auto) 52.9, Lymphocytes (%) (Auto) 34.4, Monocytes (%) (Auto) 8.0, Eosinophils (%) (Auto) 3.5H, Basophils (%) (Auto ) 1.2, Sodium Level 141, Potassium Level 4.2, Chloride Level 101, Carbon Dioxide Level 26, Anion Gap 14, Blood Urea Nitrogen 19, Creatinine 1.0, Estimat Glomerular Filtration Rate > 60, Glucose Level 158H, Calcium Level 9.2, Troponin I < 0.30, Pro-B-Type Natriuretic Peptide 96 Current Medications Medications (Trade) Dose Ordered Sig/Nelson Route PRN Reason Start Time Stop Time Status Last Admin Dose Admin Aspirin (Ecotrin) 81 mg DAILY ORAL 12/30/16 09:00 01/29/17 08:59 12/30/16 08:51 Atorvastatin Calcium (Lipitor) 10 mg BEDTIME ORAL 12/28/16 21:00 01/27/17 20:59 12/29/16 21:01 Clonidine HCl (Catapres) 0.1 mg Q4H PRN ORAL FOR SBP>170 12/29/16 13:00 01/28/17 12:59 Clopidogrel Bisulfate (Plavix) 75 mg DAILY ORAL 12/29/16 09:00 01/28/17 08:59 12/30/16 08:51 Dextrose (Dextrose 50%) STAT PRN IV Hypoglycemia 12/28/16 11:15 01/27/17 11:14 Gabapentin (Neurontin) 100 mg THREE TIMES A DAY ORAL 12/28/16 13:00 01/27/17 12:59 12/30/16 08:52 Haloperidol (Haldol) 2 mg TIDPRN PRN ORAL Agitation 12/28/16 17:30 01/27/17 17:29 Hydromorphone HCl (Dilaudid) 1 mg Q4H PRN IVP Severe Pain (Pain Scale 7-10) 12/28/16 17:30 01/04/17 11:14 Ibuprofen (Motrin) 600 mg THREE TIMES A DAY ORAL 12/28/16 18:00 01/27/17 17:59 12/30/16 08:51 Metformin HCl (Glucophage) 500 mg BID ORAL 12/28/16 18:00 01/27/17 17:59 12/30/16 08:51 Metoprolol Tartrate (Lopressor) 25 mg Q12HR ORAL 12/29/16 21:00 01/28/17 20:59 12/30/16 08:51 Tramadol HCl (Ultram) 50 mg Q6H PRN ORAL Moderate Pain (Pain Scale 4-6) 12/28/16 17:15 01/04/17 17:14 Uche Liz MD December 30, 2016 10:16
[2016-12-30 11:56] VITALS: BP 130/77
[2016-12-30 15:55] VITALS: BP 142/83
--- NOTE | 2016-12-30 17:21 | Cardiac Electrophysiology PN ---
Assessment/Plan Assessment/Plan 1. Coronary artery disease with history of coronary artery bypass graft and prior myocardial infarction. Denies any chest pain. Continue Plavix 75 mg daily and Lipitor 10 mg daily. Echo Nl EF. 2. History of hypertension. Continue Lopressor 25 mg b.i.d. 3. Right upper extremity weakness and neck pain, possible radiculopathy, rule out cervical spondylosis. Follow up by Dr. Marvin. MRI of the cervical spine is pending. 4. Type 2 diabetes. 5. Hyperlipidemia. BLANCHE RN Subjective Subjective Comfortable in NAD. No chest pain or SOB. Objective Last 24 Hour Vital Signs Date Time Temp Pulse Resp B/P Pulse Ox O2 Delivery O2 Flow Rate FiO2 12/30/16 15:55 97.3 68 20 142/83 98 Room Air 12/30/16 13:19 96.6 12/30/16 11:56 96.6 52 20 130/77 98 Room Air 12/30/16 11:21 65 12/30/16 08:51 58 133/79 12/30/16 07:56 96.4 58 20 133/79 98 Room Air 12/30/16 07:48 55 12/30/16 04:10 97.7 58 20 143/84 98 Room Air 12/30/16 04:00 59 12/30/16 00:00 65 12/30/16 00:00 97.0 66 20 146/85 96 Room Air 12/29/16 21:02 80 148/88 12/29/16 20:09 97.7 82 20 148/88 97 Room Air 12/29/16 20:00 83 Intake and Output 12/29/16 12/30/16 19:00 07:00 # Voids 3 3 Laboratory Tests Test 12/30/16 05:55 White Blood Count 4.8 K/UL (4.8-10.8) Red Blood Count 5.64 M/UL (4.70-6.10) Hemoglobin 17.2 G/DL (14.2-18.0) Hematocrit 50.0 % (42.0-52.0) Mean Corpuscular Volume 89 FL (80-99) Mean Corpuscular Hemoglobin 30.5 PG (27.0-31.0) Mean Corpuscular Hemoglobin Concent 34.4 G/DL (32.0-36.0) Red Cell Distribution Width 11.5 % (11.6-14.8) L Platelet Count 211 K/UL (150-450) Mean Platelet Volume 6.8 FL (6.5-10.1) Neutrophils (%) (Auto) 52.9 % (45.0-75.0) Lymphocytes (%) (Auto) 34.4 % (20.0-45.0) Monocytes (%) (Auto) 8.0 % (1.0-10.0) Eosinophils (%) (Auto) 3.5 % (0.0-3.0) H Basophils (%) (Auto) 1.2 % (0.0-2.0) Sodium Level 141 mEQ/L (135-145) Potassium Level 4.2 mEQ/L (3.4-4.9) Chloride Level 101 mEQ/L (98-107) Carbon Dioxide Level 26 mEQ/L (20-30) Anion Gap 14 (5-15) Blood Urea Nitrogen 19 mg/dL (7-23) Creatinine 1.0 mg/dL (0.7-1.2) Estimat Glomerular Filtration Rate > 60 mL/min (>60) Glucose Level 158 mg/dL (74-106) H Calcium Level 9.2 mg/dL (8.6-10.2) Troponin I < 0.30 ng/mL (<=0.30) Pro-B-Type Natriuretic Peptide 96 pg/mL (0-125) Objective HEAD AND NECK: Shows no JVD. LUNGS: Clear. CARDIOVASCULAR: Shows regular S1 and S2 with no gallop or murmur. His sternotomy is intact. ABDOMEN: Soft and nontender. EXTREMITIES: No pitting edema. AKBAR ARGUELLES December 30, 2016 17:21
--- NOTE | 2016-12-30 17:58 | Nephrology Progress Note ---
Assessment/Plan Problem List: (1) Chest pain (2) HTN (hypertension) (3) Diabetes mellitus, new onset (4) Episode of generalized weakness (5) Paresthesia and pain of right extremity Plan Pain management Monitor lytes, correct as needed Monitor Vitals BP & BS control O2 prn f/u with cardio and neuro rec DC plan - home if with ok with neuro Subjective Constitutional: Denies: chills, diaphoresis, fever, malaise, no symptoms, other , weakness HEENT: Denies: blurred vision, double vision, ear discharge, ear pain, eye pain , mouth pain, mouth swelling, no symptoms, nose congestion, nose pain, other, tearing, throat pain, throat swelling Genitourinary: Denies: burning, discharge, flank pain, frequency, hematuria, incontinence, no symptoms, other, pain, urgency Neurologic/Psychiatric: Denies: anxiety, depressed, emotional problems, headache, no symptoms, numbness, other, paresthesia, pre-existing deficit, seizure, tingling, tremors, weakness Subjective In bed, in no apparent distress Objective Objective Last 24 Hour Vital Signs Date Time Temp Pulse Resp B/P Pulse Ox O2 Delivery O2 Flow Rate FiO2 12/30/16 15:55 97.3 68 20 142/83 98 Room Air 12/30/16 13:19 96.6 12/30/16 11:56 96.6 52 20 130/77 98 Room Air 12/30/16 11:21 65 12/30/16 08:51 58 133/79 12/30/16 07:56 96.4 58 20 133/79 98 Room Air 12/30/16 07:48 55 12/30/16 04:10 97.7 58 20 143/84 98 Room Air 12/30/16 04:00 59 12/30/16 00:00 65 12/30/16 00:00 97.0 66 20 146/85 96 Room Air 12/29/16 21:02 80 148/88 12/29/16 20:09 97.7 82 20 148/88 97 Room Air 12/29/16 20:00 83 Intake and Output 12/29/16 12/30/16 19:00 07:00 # Voids 3 3 Laboratory Tests 12/30/16 05:55: White Blood Count 4.8, Red Blood Count 5.64, Hemoglobin 17.2, Hematocrit 50.0, Mean Corpuscular Volume 89, Mean Corpuscular Hemoglobin 30.5, Mean Corpuscular Hemoglobin Concent 34.4, Red Cell Distribution Width 11.5L, Platelet Count 211, Mean Platelet Volume 6.8, Neutrophils (%) (Auto) 52.9, Lymphocytes (%) (Auto) 34.4, Monocytes (%) (Auto) 8.0, Eosinophils (%) (Auto) 3.5H, Basophils (%) (Auto ) 1.2, Sodium Level 141, Potassium Level 4.2, Chloride Level 101, Carbon Dioxide Level 26, Anion Gap 14, Blood Urea Nitrogen 19, Creatinine 1.0, Estimat Glomerular Filtration Rate > 60, Glucose Level 158H, Calcium Level 9.2, Troponin I < 0.30, Pro-B-Type Natriuretic Peptide 96 Height (Feet): 5 Height (Inches): 5.00 Weight (Pounds): 125 General Appearance: no apparent distress, alert EENT: normal ENT inspection Neck: non-tender, normal alignment Cardiovascular: normal rate, regular rhythm Respiratory/Chest: no respiratory distress Abdomen: non tender, soft, no organomegaly, no mass Extremities: non-tender, normal inspection, no calf tenderness Neurologic: alert, oriented x 3, responsive, normal mood/affect Almita Leblanc N.P. December 30, 2016 17:58
[2016-12-30 20:00] VITALS: BP 143/97
[2016-12-31] VITALS: BP 115/71
[2016-12-31 04:00] VITALS: BP 120/73
--- NOTE | 2016-12-31 07:31 | Cardiology Report ---
APPROVED REPORT EXAM: Two-dimensional and M-mode echocardiogram with Doppler and color Doppler. INDICATION Chest Pain M-Mode DIMENSIONS IVSd1.1 (0.7-1.1cm)Left Atrium (MM)4.5 (1.6-4.0cm) LVDd6.4 (3.5-5.6cm)Aortic Root3.1 (2.0-3.7cm) PWd1.4 (0.7-1.1cm)Aortic Cusp Exc.2.0 (1.5-2.0cm) LVDs4.5 (2.5-4.0cm) PWs1.6 cm Normal left ventricular chamber size, systolic function and wall motion to extent visualized. Left ventricular ejection fraction estimated to be 60%. No left ventricular hypertrophy. No evidence of pericardial effusion Anterior Echo-free space, may be due to pericardial fat or effusion. Mild left atrium enlargement. All other cardiac chamber sizes are within normal limits. Thickened mitral valve leaflets with normal excursion. Thickened aortic valve cusps with normal excursion. Normal pulmonic valve structure Normal tricuspid valve structure. IVC at normal 2cm with physiologic collapse. RA pressure 10mmHg. A color flow and spectral Doppler study was performed and revealed: No aortic regurgitation. Mild mitral regurgitation. Mitral diastolic velocities suggest grade 1 diastolic dysfunction. Moderate tricuspid regurgitation. Tricuspid systolic velocities suggests peak right ventricular systolic pressure of 39mmHg consistent with moderate pulmonary hypertension. Mild pulmonic regurgitation present.
--- NOTE | 2016-12-31 07:58 | Cardiology Report ---
APPROVED REPORT EKG Measurement Heart [id number] Normal sinus rhythm Cannot rule out Inferior infarct, age undetermined Anteroseptal infarct, possibly acute Abnormal ECG
[2016-12-31 08:00] VITALS: BP 114/71
[2016-12-31] MEDS: Aspirin EC 81mg tab ORAL SCH (09:15)
[2016-12-31] MEDS: metFORMIN 500mg tab ORAL SCH (09:15)
[2016-12-31] MEDS: Metoprolol 25mg tab ORAL SCH (09:16)
--- NOTE | 2016-12-31 09:18 | Diagnostic Imaging Report ---
Indication: Neck pain. Technique: Continuous helical imaging of the cervical spine was obtained transaxially from the skull base to the upper thoracic spine. 2-D coronal and sagittal reformatted images were obtained. Total Dose length Product (DLP): [address] Dose Index Volume (CTDIvol): 18 mGy Comparison: None Findings: No acute fracture or malalignment identified. No soft tissue swelling is present. No abnormal fluid collections are identified. Facet hypertrophy and uncovertebral spur formation noted at multiple levels within the cervical spine. There is a right foraminal stenosis at C3-4, right foraminal stenosis at C5-6. This may be further and better evaluated with MRI. Mild calcification at the carotid bifurcations noted bilaterally. Impression: No acute injury identified. Spondylosis as described above The CT scanner at [facility] is accredited by the [employer] and the scans are performed using dose optimization techniques as appropriate to a performed exam including Automatic Exposure control.
--- NOTE | 2016-12-31 09:18 | Diagnostic Imaging Report ---
Indication: Neck Pain Findings: 5 views of the cervical spine were obtained. There is no acute fracture identified. Alignment is normal. The open-mouth odontoid view shows an intact dens and good alignment of the lateral masses with respect to the body of C2. There is no soft tissue swelling. The neural foramina are not well demonstrated on oblique views. Impression: No acute injury.
--- NOTE | 2016-12-31 09:18 | Diagnostic Imaging Report ---
Indication: Chest Pain Comparison: 10/07/14 A single view chest radiograph was obtained. Findings: Lungs are clear. Heart size is normal. Sternotomy noted. Bones are slightly osteopenic. Impression: No acute disease
--- NOTE | 2016-12-31 10:11 | Pulmonology Progress Note ---
Assessment/Plan Assessment/Plan IMPRESSION: 1. Atypical right-sided chest pain, do not suspect pulmonary embolus or cardiac pain. 2. Headache. 3. Hypertension. 4. Diabetes. DISCUSSION: Plan and care per primary physician and Cardiology. 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 At this point, there are no active suggestions. Subjective Interval Events: none Constitutional: Reports: no symptoms HEENT: Repors: no symptoms Respiratory: Reports: no symptoms Cardiovascular: Reports: no symptoms Gastrointestinal/Abdominal: Reports: no symptoms Allergies: Coded Allergies: No Known Allergies (Unverified , 10/07/14) Objective Last 24 Hour Vital Signs Date Time Temp Pulse Resp B/P Pulse Ox O2 Delivery O2 Flow Rate FiO2 12/31/16 09:16 72 114/71 12/31/16 08:00 96.0 57 18 114/71 98 Room Air 12/31/16 04:00 55 12/31/16 04:00 97.4 53 19 120/73 95 Room Air 12/31/16 00:00 60 12/31/16 00:00 97.7 70 20 115/71 97 Room Air 12/30/16 20:43 74 143/97 12/30/16 20:00 70 12/30/16 20:00 97.4 80 20 143/97 98 Room Air 12/30/16 18:01 97.3 12/30/16 16:04 73 12/30/16 15:55 97.3 68 20 142/83 98 Room Air 12/30/16 11:56 96.6 52 20 130/77 98 Room Air 12/30/16 11:21 65 Intake and Output 12/30/16 12/31/16 19:00 07:00 Intake Total 480 ml 120 ml Balance 480 ml 120 ml Intake Oral 480 ml 120 ml # Voids 3 3 # Bowel Movements 2 General Appearance: no acute distress HEENT: normocephalic Respiratory/Chest: chest wall non-tender, lungs clear Cardiovascular: normal peripheral pulses, normal rate Abdomen: normal bowel sounds, soft, non tender Current Medications Medications (Trade) Dose Ordered Sig/Nelson Route PRN Reason Start Time Stop Time Status Last Admin Dose Admin Aspirin (Ecotrin) 81 mg DAILY ORAL 12/30/16 09:00 01/29/17 08:59 12/31/16 09:15 Atorvastatin Calcium (Lipitor) 10 mg BEDTIME ORAL 12/28/16 21:00 01/27/17 20:59 12/30/16 20:43 Clonidine HCl (Catapres) 0.1 mg Q4H PRN ORAL FOR SBP>170 12/29/16 13:00 01/28/17 12:59 Clopidogrel Bisulfate (Plavix) 75 mg DAILY ORAL 12/29/16 09:00 01/28/17 08:59 12/31/16 09:16 Dextrose (Dextrose 50%) STAT PRN IV Hypoglycemia 12/28/16 11:15 01/27/17 11:14 Gabapentin (Neurontin) 100 mg THREE TIMES A DAY ORAL 12/28/16 13:00 01/27/17 12:59 12/31/16 09:16 Haloperidol (Haldol) 2 mg TIDPRN PRN ORAL Agitation 12/28/16 17:30 01/27/17 17:29 Hydromorphone HCl (Dilaudid) 1 mg Q4H PRN IVP Severe Pain (Pain Scale 7-10) 12/28/16 17:30 01/04/17 11:14 Ibuprofen (Motrin) 600 mg THREE TIMES A DAY ORAL 12/28/16 18:00 01/27/17 17:59 12/31/16 09:16 Metformin HCl (Glucophage) 500 mg BID ORAL 12/28/16 18:00 01/27/17 17:59 12/31/16 09:15 Metoprolol Tartrate (Lopressor) 25 mg Q12HR ORAL 12/29/16 21:00 01/28/17 20:59 12/31/16 09:16 Tramadol HCl (Ultram) 50 mg Q6H PRN ORAL Moderate Pain (Pain Scale 4-6) 12/28/16 17:15 01/04/17 17:14 Uche Liz MD December 31, 2016 10:10
[2016-12-31 12:00] VITALS: BP 152/73
--- NOTE | 2016-12-31 12:35 | Diagnostic Imaging Report ---
APPROVED REPORT CPT Code: 46651 Present Symptoms Lower Extremity Pain: Bilateral BILATERAL: Imaging reveals a patent deep venous system bilaterally. There is no evidence of thrombus within the femoral, popliteal or tibial segments. The greater saphenous veins are also within normal limits. Doppler indicates normal spontaneous flow within these segments.
--- NOTE | 2016-12-31 13:24 | General Progress Note ---
Assessment/Plan Problem List: (1) Chest pain ICD Codes: R07.9 - Chest pain, unspecified SNOMED: 25879995 Qualifiers: Qualified Codes: R07.9 - Chest pain, unspecified (2) Headache ICD Codes: R51 - Headache SNOMED: 38321455 Qualifiers: Qualified Codes: R51 - Headache (3) Hypertensive urgency, malignant ICD Codes: I16.0 - Hypertensive urgency SNOMED: 598450658 (4) Diabetes ICD Codes: E11.9 - Type 2 diabetes mellitus without complications SNOMED: 20019332 (5) HTN (hypertension) ICD Codes: I10 - Essential (primary) hypertension SNOMED: 26411396 (6) Myocardial infarction ICD Codes: I21.3 - ST elevation (STEMI) myocardial infarction of unspecified site SNOMED: 58502094 Status: stable, progressing, tolerating diet Assessment/Plan ot pt diet bs bp control dc plan Subjective Constitutional: Reports: weakness Allergies: Coded Allergies: No Known Allergies (Unverified , 10/07/14) All Systems: reviewed and negative except above Subjective calm in bed Objective Last 24 Hour Vital Signs Date Time Temp Pulse Resp B/P Pulse Ox O2 Delivery O2 Flow Rate FiO2 12/31/16 12:00 98.0 60 18 152/73 100 Room Air 12/31/16 12:00 58 12/31/16 09:16 72 114/71 12/31/16 08:00 96.0 57 18 114/71 98 Room Air 12/31/16 07:43 56 12/31/16 04:00 55 12/31/16 04:00 97.4 53 19 120/73 95 Room Air 12/31/16 00:00 60 12/31/16 00:00 97.7 70 20 115/71 97 Room Air 12/30/16 20:43 74 143/97 12/30/16 20:00 70 12/30/16 20:00 97.4 80 20 143/97 98 Room Air 12/30/16 18:01 97.3 12/30/16 16:04 73 12/30/16 15:55 97.3 68 20 142/83 98 Room Air Intake and Output 12/30/16 12/31/16 19:00 07:00 Intake Total 480 ml 120 ml Balance 480 ml 120 ml Intake Oral 480 ml 120 ml # Voids 3 3 # Bowel Movements 2 Height (Feet): 5 Height (Inches): 5.00 Weight (Pounds): 125 General Appearance: alert EENT: normal ENT inspection Neck: normal alignment Cardiovascular: normal peripheral pulses, normal rate, regular rhythm Respiratory/Chest: chest wall non-tender, lungs clear, normal breath sounds Abdomen: normal bowel sounds, non tender, soft Extremities: normal inspection Edema: no edema noted Arm (L), no edema noted Arm (R), no edema noted Leg (L), no edema noted Leg (R), no edema noted Pedal (L), no edema noted Pedal (R), no edema noted Generalized Neurologic: responsive, motor weakness Skin: normal pigmentation, warm/dry MERRITT RAMOS December 31, 2016 13:24
--- NOTE | 2017-01-02 06:42 | Discharge Summary ---
Discharge Summary Hospital Course Date of Admission December 28, 2016 at 07:05 Date of Discharge December 31, 2016 at 13:00 Admitting Diagnosis Hypertensive emergency HPI Nilda Marx is a 61 year old male who was admitted on December 28, 2016 at 07:05 for Hypertensive Emergency Hospital Course [id number] Discharge Discharge Disposition Patient was discharged to Home (01) Discharge Diagnoses: Malina Mendez NP Jan 02, 2017 06:42
--- NOTE | 2017-01-02 09:00 | Discharge Summary 2 SIG ---
DATE OF ADMISSION: 12/28/2016 DATE OF DISCHARGE: 12/31/2016 CONSULTANTS: 1. Joes Mina D.O. 2. Uhce Liz M.D. 3. Duglas Galindo M.D. 4. Sarath Marvin M.D. BRIEF HOSPITAL COURSE: The patient is a 61-year-old [place] male with history of NE, status post CABG, hypertension, and diabetes, who presented to ED complaining of right-sided headache, pain to the right side and arms, and chest pain. There was no numbness or tingling in the fingers. No fever. No chills. This has been ongoing for a year and pain has gotten increasingly worse. He then presented to ED. On evaluation at ED, CT of the head done was negative. Blood pressure was elevated to 176/106, and was presenting with headache, neck pain, and shoulder pain. Troponin was negative. EKG showed nonspecific ST changes with incomplete left bundle-branch block. Chest x-ray showed no acute cardiopulmonary disease, no consolidation, no effusion. He was admitted to telemetry for ACS and for evaluation of paresthesia on the right upper extremity with shoulder pain, headache, and generalized weakness. He was seen by Dr. Marvin. He had cervical spine x-ray which showed no acute injury. Cervical spine CT showed spondylosis, but no acute injury identified. He was given pain medications and started on Neurontin and underwent physical therapy and occupational therapy. Dr. Galindo was consulted. The patient was given Plavix and Lipitor as well as aspirin. He was also given metoprolol 25 mg q.12 hours. Echocardiogram done showed ejection fraction of 60%. Venous duplex of lower extremity was also patent bilaterally. Cardiac troponins had been negative. The patient was eventually discharged home. FINAL DIAGNOSES: 1. Atypical chest pain. 2. Coronary artery disease with coronary artery bypass graft and prior myocardial infarction. 3. Right upper extremity radiculopathy. 4. Hypertension. 5. Diabetes mellitus, new onset. 6. Hyperlipidemia. FINAL DISPOSITION: The patient was discharged home. Christian Nick M.D. I have been assigned to dictate discharge summary on this account and I was not involved in the patient's management. Malina Mendez N.P. DR: Brant JOB#: [id number] CC:
== END 2016-12-31 13:00 | disposition home or self-care (01) | DRG 347 ==
LOC: EMR 05:53 → 2E 07:05 → EDBEDREQ 08:14
DX: M47.22 Other spondylosis with radiculopathy, cervical region (principal); I16.0 Hypertensive urgency; E11.9 Type 2 diabetes mellitus without complications; I25.10 Atherosclerotic heart disease of native coronary artery without angina pectoris; Z95.1 Presence of aortocoronary bypass graft; I25.2 Old myocardial infarction; E78.5 Hyperlipidemia, unspecified; R51 Headache; M25.511 Pain in right shoulder; R53.1 Weakness; R07.89 Other chest pain; Z79.02 Long term (current) use of antithrombotics/antiplatelets; M54.89 Other dorsalgia; I44.7 Left bundle-branch block, unspecified
CPT/HCPCS: 36415; 70450; 71010; 72052; 72125; 80048; 80053; 82550; 82553; 82962; 83880; 84484; 85025; 93005; 93306; 93970; 97803